=== PATIENT | female | born 1975 | race Caucasian/White ===

== ENCOUNTER 2024-01-15 14:52 | Emergency (ER) | payer OTHER, SELFPAY ==
[2024-01-15 15:02] VITALS: BP 134/82; PULSE 78; TEMP 36.7; O2SAT 96; BMI 42.0
--- NOTE | 2024-01-15 15:35 | ED_ITS ---
HPI - URI/Sore Throat General Chief Complaint: Upper Respiratory Infection Stated Complaint: GENERAL WEAKNESS/ COUGH Time Seen by Provider: 01/15/24 15:22 Source: patient and family () Limitations: no limitations History of Present Illness HPI Narrative: 48-year-old female presents to the emergency department with with complaint of severe cough since Monday. Has been nonproductive. Feels like she has had some wheezing. States history of lupus. Has had a little chest discomfort with her cough, low back pain, little short of breath. Patient reports she had low-grade fever yesterday. Denies history of cigarette smoking. Quality:?As above Severity:? moderate Timing:?As above, constant Context: Normal setting and activity? Modifying factors:?Worse with cough Associated symptoms: As above Related Data Previous Rx's ?Medication ?Instructions ?Recorded albuterol sulfate 90 mcg/actuation 1 inh inhalation QID PRN shortness 01/15/24 aerosol inhaler of breath or wheezing #8.5 grams doxycycline hyclate 100 mg capsule 100 mg PO Q12H 10 days #20 caps 01/15/24 prednisone 20 mg tablet 40 mg (2 x 20 mg) PO DAILY 5 days 01/15/24 #10 tabs Allergies Allergy/AdvReac Type Severity Reaction Status Date / Time Penicillins Allergy Severe Swelling Verified 01/15/24 15:41 of Lip/Tongue/Throat Review of Systems ROS Narrative Constitutional: + low grade fever, fatigue HENT: + sore throat from coughing. Denies congestion, ear pain, rhinorrhea, sneezing, sore throat, diff swallowing, voice change Eyes: Denies discharge, eye redness Respiratory: + cough, slight shortness of breath Cardiovascular: + pleuritic chest pain. Denies palpitations Exam Narrative Exam Narrative: Vital signs noted Nurses notes reviewed CONST:? Nontoxic, well appearing, well nourished, in no distress.? HENT: normocephalic, atraumatic.? Normal hearing.? Normal appearing ext ears, canals, TM's.? No nasal discharge.? Moist mucous membranes, no increased oropharyngeal erythema, edema, exudate.? No trismus, maintaining own secretions. EYES: No injection, discharge NECK: supple, no lymphadenopathy CV: normal rate, regular rhythm, no murmur RESP: normal effort, speaking in complete sentences. Lung sounds clear and equal bilat.? No wheezes, rales, rhonchi. + harsh, dry cough displayed? NEURO: A&Ox3, steady gait, normal station SKIN: intact, warm, dry, no pallor PSYCHIATRIC: normal mood, affect Constitutional Vital Signs, click to edit/add: Last Vital Signs Temp 98.1 F 01/15/24 15:02 Pulse 71 01/15/24 16:07 Resp 16 01/15/24 15:02 BP 134/82 01/15/24 15:02 Pulse Ox 96 01/15/24 16:07 O2 Del Method Room Air 01/15/24 16:07 Course Reevaluation(s) Reevaluation #1: Discussed with patient and results, plan, disposition. They are agreeable and voice no other questions or concerns. Time: 17:48 Vital Signs Vital signs: Vital Signs Temperature 98.1 F 01/15/24 15:02 Pulse Rate 78 01/15/24 15:02 Respiratory Rate 16 01/15/24 15:02 Blood Pressure 134/82 01/15/24 15:02 Pulse Oximetry 96 01/15/24 15:02 Oxygen Delivery Method Room Air 01/15/24 15:02 Temperature 98.1 F 01/15/24 15:02 Pulse Rate 71 01/15/24 16:07 Respiratory Rate 16 01/15/24 15:02 Blood Pressure 134/82 01/15/24 15:02 Pulse Oximetry 96 01/15/24 16:07 Oxygen Delivery Method Room Air 01/15/24 16:07 MDM - URI/Sore Throat MDM Narrative Medical decision making narrative: This is a pleasant 48-year-old female presenting to the emergency department with with complaint of cough, body aches, muscle aches, mild shortness of breath, pleuritic chest discomfort, low back discomfort. Onset of symptoms yesterday. Does have history of lupus. She is on Plaquenil. She did have a low-grade fever at home. Denies prior history of COPD, cigarette smoking. On arrival, afebrile, vital signs are stable, not hypoxic. On exam, nontoxic, well-appearing patient in no distress. She displays a harsh cough during exam. Heart regular rate and rhythm. Lung sounds clear and equal bilaterally. Visualization of TM somewhat occluded due to cerumen. Labs reveal no leukocytosis, electrolyte imbalance, renal impairment. H&H were a little low. Urinalysis was unremarkable. EKG reveals no acute or concerning changes. Chest x-ray reveals findings consistent with, bronchitis. No pneumonia was noted. Patient was given IV Solu-Medrol, DuoNeb breathing treatment with some improvement. Favor cough, bronchitis Pneumonia, RSV, COVID, influenza less likely based on imaging, laboratory testing Patient remained stable during ED course. Disposition ? The patient was discharged. Plan: Patient will be discharged to home. Condition at time of disposition: stable She will be started on doxycycline and has, with history of lupus, concern for immunocompromise state. She was also given prednisone and albuterol inhaler. Advised to follow up with primary provider. Advised to return for any worsening and/or development of new, concerning signs or symptoms PLEASE NOTE: Portions of the medical record may have been produced using electronic central office supervisor and may contain errors with respect to translation of words which may not have been identified prior to finalization of the chart. Medical Records Attestation: I reviewed the patient's medical records. (None available) Lab Data Attestation: I reviewed the patient's lab results. Labs: Lab Results 01/15/24 01/15/24 01/15/24 Range/Units 15:49 16:10 17:15 WBC 7.4 (4.0-11.0) 10^3/uL RBC 4.22 (4.20-5.40) 10^6/uL Hgb 10.4 L (12.0-16.0) g/dL Hct 34.2 L (36.0-48.0) % MCV 81.0 (81.0-99.0) fL MCH 24.6 L (26.7-34.0) pg MCHC 30.4 (29.9-35.2) g/dL RDW 16.2 H (11.0-15.0) % Plt Count 314 (150-450) 10^3/uL MPV 10.9 (9.5-13.5) fL Neut % (Auto) 52.0 (43.0-75.0) % Lymph % (Auto) 26.7 (20.5-60.0) % [place] % (Auto) 19.3 H (1.7-12.0) % Eos % (Auto) 1.5 (0.9-7.0) % Baso % (Auto) 0.4 (0.2-2.0) % Neut # (Auto) 3.9 (1.4-6.5) 10^3/uL Lymph # (Auto) 2.0 (1.2-3.8) 10^3/uL [place] # (Auto) 1.4 H (0.3-0.8) 10^3/uL Eos # (Auto) 0.1 (0.0-0.7) 10^3/uL Baso # (Auto) 0.0 (0.0-0.1) 10^3/uL Abs Immat Gran (auto) 0.01 (0.00-0.03) 10^3/uL Imm/Tot Granulo (auto) 0.1 (0.0-0.5) % Sodium 139 (136-145) mmol/L Potassium 3.3 L (3.5-5.1) mmol/L Chloride 103 (98-107) mmol/L Carbon Dioxide 25.4 (21.0-32.0) mmol/L Anion Gap 13.9 BUN 12.0 (7.0-18.0) mg/dL Creatinine 0.87 (0.55-1.02) mg/dL Est GFR ( Amer) >60 (>=60) Est GFR (Non-Af Amer) >60 (>=60) BUN/Creatinine Ratio 13.8 Glucose 106 (74-106) mg/dL Calcium 9.0 (8.5-10.1) mg/dL Urine Color Lt. yellow (YELLOW) Urine Clarity Clear (CLEAR) Urine pH 6.0 (5.0-9.0) Ur Specific [place] 1.015 (1.005-1.025) Urine Protein Negative (NEG/TRACE) mg/dL Urine Glucose (UA) Negative (NEGATIVE) mg/dL Urine Ketones Negative (NEGATIVE) mg/dL Urine Occult Blood Negative (NEGATIVE) Urine Nitrite Negative (NEGATIVE) Urine Bilirubin Negative (NEGATIVE) Urine Urobilinogen 0.2 (0.2-1.0) EU/dL Ur Leukocyte Esterase Small A (NEGATIVE) Urine RBC 0-2 (0-2) #/HPF Urine WBC 0-2 A (NONE SEEN) #/HPF Ur Squamous Epith Cells None seen (NONE/RARE) #/LPF Urine Crystals None seen (None Seen) #/HPF Urine Bacteria None seen (NONE SEEN) #/HPF Urine Casts None seen (NONE SEEN) #/LPF Urine Mucus None seen (NONE SEEN) Influenza Type A Ag Negative Influenza Type B Ag Negative RSV Antigen Not detected (NOT DETECTE) SARS-CoV-2 Ag (CV2AG) Negative (NEGATIVE) Imaging Data Chest x-ray: Radiologist's impression: ITS Impressions Chest X-Ray 01/15/24 16:30 IMPRESSION: 1. Findings consistent with bronchitis. 2. No focal consolidation. Electronically authenticated by: BASILIO GERBER Date: 01/15/2024 17:45 ECG Data Attestation: I personally reviewed and interpreted this ECG as follows: (EKG performed at 1521 hrs. reveals sinus rhythm at 72 bpm. No STEMI. No ischemia or ectopy noted. Normal axis. No other additional acute findings noted.) ECG interpretation date: 01/15/24 ECG interpretation time: 15:39 Discharge Plan Discharge Stand Alone Forms: Portal Instructions Chief Complaint: Upper Respiratory Infection Clinical Impression: Cough Qualifiers: Cough type: acute Qualified Code(s): R05.1 - Acute cough Upper respiratory infection Qualifiers: URI type: unspecified URI Qualified Code(s): J06.9 - Acute upper respiratory infection, unspecified Patient Disposition: Home, Self-Care Time of Disposition Decision: 17:48 Condition: Good Mode of Transportation: Private Vehicle Prescriptions / Home Meds: New doxycycline hyclate 100 mg capsule 100 mg PO Q12H 10 Days Qty: 20 0RF prednisone 20 mg tablet 40 mg PO DAILY 5 Days Qty: 10 0RF Rx Instructions: days 11-21 of therapy albuterol sulfate 90 mcg/actuation HFA aerosol inhaler 1 inh inhalation QID PRN (Reason: shortness of breath or wheezing) Qty: 8.5 0RF Print Language: Bel[place]ian Instructions: Acute Bronchitis (ED) Referrals: Mikhail Pineda MD [Physician] - 1 week Discharge Date/Time: 01/15/24 18:04
--- NOTE | 2024-01-15 15:41 | ECG_ITS ---
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
[2024-01-15] MEDS: 0.9 % SODIUM CHLORIDE 1,000 ML 999 ML IV (16:04)
[2024-01-15] MEDS: METHYLPREDNISOLONE SOD SUCC PF 125 MG/2 ML VIAL IVP (16:04)
[2024-01-15] MEDS: IPRATROPIUM/ALBUTEROL SULFATE 3 ML AMPUL.NEB IH (16:06)
[2024-01-15 16:07] VITALS: PULSE 71; O2SAT 96
[2024-01-15 16:10] LABS: Basophils Percent Auto 0.4 % (0.2-2.0); Eosinophils Absolute Auto 0.1 10^3/uL (0.0-0.7); Eosinophils Percent Auto 1.5 % (0.9-7.0); Hematocrit 34.2 % (36.0-48.0); Hemoglobin 10.4 g/dL (12.0-16.0); Immature Granulocytes Abs Auto 0.01 10^3/uL (0.00-0.03); Immature Granulocytes Pct Auto 0.1 % (0.0-0.5); Lymphocytes Percent Auto 26.7 % (20.5-60.0); Mean Corpuscular HGB Conc 30.4 g/dL (29.9-35.2); Mean Corpuscular Hemoglobin 24.6 pg (26.7-34.0); Mean Platelet Volume 10.9 fL (9.5-13.5); Monocytes Absolute Auto 1.4 10^3/uL (0.3-0.8); Monocytes Percent Auto 19.3 % (1.7-12.0); Neutrophils Absolute Auto 3.9 10^3/uL (1.4-6.5); Platelet Count 314 10^3/uL (150-450); Red Blood Count 4.22 10^6/uL (4.20-5.40); Red Cell Distribution Width 16.2 % (11.0-15.0); White Blood Count 7.4 10^3/uL (4.0-11.0)
[2024-01-15 16:25] LABS: Anion Gap 13.9; BUN Creatinine Ratio 13.8; Carbon Dioxide 25.4 mmol/L (21.0-32.0); Chloride 103 mmol/L (98-107); Estimated GFR (African America >60 (>=60); Estimated GFR (Non-African Ame >60 (>=60); Glucose 106 mg/dL (74-106); Potassium 3.3 mmol/L (3.5-5.1); Sodium 139 mmol/L (136-145)
--- NOTE | 2024-01-15 16:30 | XR_ITS ---
The [address] [address] Patient Name: MARE LANCASTER MRN: [id number] date: 1975 Sex: F Assigned Patient Location: ER Current Patient Location: ER Accession/Order Number: [id number] Exam Date: 01/15/2024 16:25 Report Date: 01/15/2024 17:45 At the request of: KAREN DE LA VEGA Procedure: XR chest 2V EXAMINATION: XR chest 2V, 01/15/2024 4:25 PM EDT HISTORY: Cough COMPARISON: None. TECHNIQUE: Chest x-ray: Two views. FINDINGS: SUPPORT APPARATUS/POST-SURGICAL CHANGES: None. CARDIOMEDIASTINAL SILHOUETTE: Normal. AIRWAYS/LUNGS: Mild central bronchial wall thickening consistent with bronchitis. No focal consolidation. PLEURAL SPACES: No pleural effusion or pneumothorax. BONES AND SOFT TISSUES: No acute abnormality. XR/XR chest 2V IMPRESSION: 1. Findings consistent with bronchitis. 2. No focal consolidation. Electronically authenticated by: BASILIO GERBER Date: 01/15/2024 17:45
[2024-01-15 16:40] LABS: Internal Control Within Normal Limits; Respiratory Syncytial Virus Not Detected (NOT DETECTE); SARS-CoV-2 Ag NEGATIVE (NEGATIVE)
[2024-01-15 17:08] LABS: Influenza Virus A Antigen Negative; Influenza Virus B Antigen Negative; Internal Control Within Normal Limits
[2024-01-15 17:29] LABS: Bilirubin Urine NEGATIVE (NEGATIVE); Blood Urine NEGATIVE (NEGATIVE); Clarity Urine CLEAR (CLEAR); Color Urine LT. YELLOW (YELLOW); Glucose Urine UA NEGATIVE (NEGATIVE); Ketones Urine NEGATIVE (NEGATIVE); Leukocyte Esterase Urine SMALL (NEGATIVE); Nitrite Urine NEGATIVE (NEGATIVE); Protein Urine NEGATIVE (NEG/TRACE); Specific Gravity Urine 1.015 (1.005-1.025); Urobilinogen Urine 0.2 EU/dL (0.2-1.0)
[2024-01-15 17:30] LABS: Urine Microscopic Indicated YES
[2024-01-15 17:48] LABS: Bacteria Urine NONE SEEN #/HPF (NONE SEEN); Cast Seen? NONE SEEN #/LPF (NONE SEEN); Crystals Seen? None Seen #/HPF (None Seen); Mucus Urine NONE SEEN (NONE SEEN); RBC Urine 0-2 #/HPF (0-2); Squamous Epithelial Cell Urine NONE SEEN #/LPF (NONE/RARE); WBC Urine 0-2 #/HPF (NONE SEEN)
== END 2024-01-15 18:04 | disposition home or self-care (01) ==
PROVIDERS: Physician Assistant; Emergency Provider Emergency Medicine Emergency Medical Services
DX: J06.9 Acute upper respiratory infection, unspecified (principal); R05.1 Acute cough; Z79.899 Other long term (current) drug therapy; Z20.822 Contact with and (suspected) exposure to COVID-19
CPT/HCPCS: 36415; 71046; 80048; 81001; 85025; 87420; 87502; 87804; 87811; 93005; 94640; 96374; 99285; J2919